=== PATIENT | male | born 1985 ===

== ENCOUNTER 2023-05-01 14:23 | Inpatient (IN) | payer OTHER ==
[~2023-05-01] VITALS: Ht 182.9 cm; Wt 71.9 kg
[2023-05-01] VITALS (12 sets, daily range): BP systolic 113–155; BP diastolic 58–89
[2023-05-01 14:48] LABS: BASOPHILS ABSOLUTE AUTO 0.06 K/mm3 (0.00-0.23); BASOPHILS PERCENT AUTO 0 % (0-2); EOSINOPHILS ABSOLUTE AUTO 0.01 K/mm3 (0.00-0.68); EOSINOPHILS PERCENT AUTO 0 % (0-6); Hemoglobin 14.3 g/dL (13.5-17.5); IMMATURE GRAN ABSOLUTE AUTO 0.12 K/mm3 (0.00-0.10); IMMATURE GRAN PERCENT AUTO 1 % (0-1); LYMPHOCYTES ABSOLUTE AUTO 4.17 K/mm3 (0.84-5.20); LYMPHOCYTES PERCENT AUTO 18 % (21-46); MONOCYTES PERCENT AUTO 7 % (4-13); Mean Corpuscular HGB 25.4 pg (26.0-34.0); Mean Corpuscular HGB Conc 32.5 g/dL (31.5-36.5); Mean Corpuscular Volume 78 fL (80-100); Mean Platelet Volume 9.4 fL (9.1-12.4); NEUTROPHILS ABSOLUTE AUTO 17.32 K/mm3 (1.96-9.15); NEUTROPHILS PERCENT AUTO 75 % (41-73); Platelet Count 349 K/mm3 (150-400); RDW Coefficient Variation 13.7 % (11.7-14.2); RDW Standard Deviation 38.7 fL (35.1-46.3); Red Blood Cell Count 5.62 M/mm3 (4.30-5.90); White Blood Cell Count 23.18 K/mm3 (4.00-11.30)
[2023-05-01 14:50] LABS: Calcium, Ionized (POC) 1.05 mmol/L (1.10-1.46); Chloride (POC) 102 mmol/L (98-108); Creatinine (POC) 1.5 mg/dL (0.8-1.3); Glucose (ISTAT POC) 268 mg/dL (70-99); Hemoglobin (POC) 15.3 g/dL (13.5-17.5); Potassium (POC) 3.1 mmol/L (3.5-5.5); Sodium (POC) 139 mmol/L (135-148); Total CO2 (POC) 18 mmol/L (21-32)
[2023-05-01 15:15] LABS: Salicylate <1.7 mg/dL (2.8-20.0)
[2023-05-01 15:17] LABS: PCO2 Arterial 34.9 mmHg (35-45); PO2 Arterial 102 mmHg (80-100); pH Blood Arterial 7.32 (7.35-7.45)
[2023-05-01 15:19] LABS: Alanine Aminotransfer (ALT/SGP 55 U/L (12-78); Albumin, Blood 4.2 g/dL (3.4-5.0); Albumin/Globulin Ratio 1.3 (0.8-1.8); Alk Phos 91 U/L (50-136); Anion Gap 17 mmol/L (6-16); Aspartate Aminotrans (AST/SGOT 55 U/L (12-37); Bilirubin, Total 0.5 mg/dL (0.1-1.0); Blood Urea Nitrogen 18 mg/dL (8-24); Bun/Creatinine Ratio 16.8 (12.0-20.0); CO2, Blood 18 mmol/L (21-32); Calcium, Blood 8.4 mg/dL (8.5-10.1); Chloride, Blood 103 mmol/L (98-108); Creatinine, Blood 1.07 mg/dL (0.60-1.20); Globulin, Blood 3.3 g/dL (2.2-4.0); Glomerular Filtration Rate 54 (60-); Glucose, Blood 272 mg/dL (70-99); Potassium, Blood 3.2 mmol/L (3.5-5.5); Sodium, Blood 138 mmol/L (136-145); Total Protein, Blood 7.5 g/dL (6.4-8.2)
[2023-05-01 15:22] LABS: Acetaminophen, Random <2.0 ug/mL (10.0-30.0)
[2023-05-01 15:41] LABS: U Amphetamine Screen DETECTED; U Barbituate Screen Not Detected; U Benzodiazapine Screen Not Detected; U Buprenorphine Screen Not Detected; U Cannabinoids Screen Not Detected; U Cocaine Screen Not Detected; U Methadone Screen Not Detected; U Methamphetamine Screen DETECTED; U Opiates Screen Not Detected; U Oxycodone Screen Not Detected; U Phencyclidine Screen Not Detected; U Propoxyphene Screen Not Detected
--- NOTE | 2023-05-01 17:05 | NUR ---
ARRIVAL TO ICU REPORT FROM ED INCLUDES PT WAS AT LOCAL [employer]. WAVED TO OTHER PEOPLE WHO WERE RIDING BICYCLES AND WHEN THEY RODE BY AGAIN PT WAS "UNRESPONSIVE AND PURPLE". PT BROUGHT FROM ED VIA GURNEY. VERSED GTT INFUSING AT 15MG/HR, GTT STOPPED UPON ARRIVAL AND PLACED IN LOCKBOX. PT HAS SOME TREMULOUS LIMB ACTIVITY THAT APPEARS TO BE "SHIVERING". PROPOFOL ORDERED FOR SEDATION. PUPILS 5MM, SLUGGISH TO RESPOND WITH OCCASIONAL NYSTAGMUS. CORNEAL REFLEX INTACT. COUGH/GAG INTACT. LIMBS MINIMALLY WITHDRAW FROM PAINFUL STIMULI. PT INTUBATED WITH VENT SETTINGS AC/VC 16/400/5/40%. TOLERATING VENT WELL. LUNGS CLEAR THROUGHOUT. NSR ON MONITOR WITH RATE 80S-90S. SBP 110S-130S. STRONG PULSES. OGT TO LIS WITH SMALL AMOUNT OF BROWN OUTPUT IN TUBING. ABODMEN SOFT, BOWEL TONES HYPOACTIVE. TEMP GEORGE PATENT AND DRAINING YELLOW URINE TO GRAVITY WITH 400ML OUTPUT. CORE TEMP 97.3. PT DIAPHORETIC/CLAMMY. DR CHILD AT BEDSIDE FOR EVAL. ORDERS RECEIVED. PT DID NOT HAVE WALLET OR ID WITH BELONGINGS. PT DID HAVE A CELL PHONE WITH CONTACTS. CONTACT IN PHONE OF NAME THAT IS TATTOOED ON PT AND REPORTS SHE IS HIS "EX". SHE PROVIDED PHONE NUMBER TO NEXT OF KIN (MOTHER) ALLEN. SISTER PATRICIA CALLED DEPARTMENT AFTER PHONE CALL TO EX. PATRICIA ABLE TO PROVIDE DESCRIPTION OF PT'S APPEARANCE AND TATTOOS. PATRICIA REPORTS HE WAS RELEASED FROM ASSISTED X2 DAYS AGO AND ASKED "IS IT BECAUSE OF DRUGS OR ALCOHOL?". REPORT GIVEN TO ODALIS BARRIGA.
[2023-05-01 18:02] LABS: Beta-hydroxybutyrate 2.6 mg/dL (0.2-2.8); Magnesium, Blood 2.4 mg/dL (1.6-2.4)
--- NOTE | 2023-05-01 18:40 | NUR ---
IDENTIFICATION: IN LOOKING THROUGH PT'S CELL PHONE, WAS ABLE TO OBTAIN TENTATIVE IDENTIFICATION AND CONTACT INFORMATION FOR FAMILY. CALL TO PATRICIA STANFORD, WHO WAS ABLE TO GIVE PHYSICAL DESCRIPTION MATCHING THE PT WELL IDENTIFY TATTOOS ON THE PT'S BODY. PATRICIA STATES THE PT'S NAME IS EMILY PALOMARES, SHE IS THE PT'S SISTER, AND THE PT'S MOTHER IS NAMED ALLEN PALOMARES - THEY BOTH LIVE IN [place] TOGETHER. PT'S IS 81. STATES PT HAS NO KNOWN MEDICAL HX OTHER THAN SUBSTANCE ABUSE, WAS JUST RELEASED FROM RETIREMENT "TWO DAYS AGO". PATRICIA STATES HER AND ALLEN WILL LIKELY COME SEE THE PT. PATRICIA STANFORD: [phone] ALLEN PALOMARES: [phone]
[2023-05-01 19:39] LABS: Hematocrit 44.5 % (37.0-53.0); Hemoglobin 14.7 g/dL (13.5-17.5)
[2023-05-01 19:48] LABS: Source, Urine Foley catheter
--- NOTE | 2023-05-01 20:00 | NUR ---
ASSUMED CARE OF PT AT 1900. REPORT RECEIVED AT BEDSIDE. DR CHILD WAS BEDSIDE. ORDERS RECEIVED. PT PRESENTS WITH PUPILS 5 MM WITH SLUGGISH RESPONSE. NYSTAGMUS NOTED. PT INTUBATED. AC 16, Tv 400, FIO2 40 PERCENT, PEEP 5. PT MAINTAINS SATURATIONS > 90 PERCENT. HAS OCCASSIONAL MOVEMENTS. WILL REVIEW CHART AND PLAN OF CARE FOR THIS PT.
[2023-05-01 20:02] LABS: Bilirubin, Urine Neg (Neg); Blood, Urine 4+ (Neg); Glucose Qualitative, Urine 3+ (Neg); Ketones, Urine 2+ (Neg); Leukocyte Esterase, Urine Neg (Neg); Nitrite, Urine Neg (Neg); Protein, Urine 2+ (Neg); Urobilinogen, Urine NORM (Normal)
[2023-05-01 20:03] LABS: International Normalized Ratio 1.02; Prothrombin Time Results 10.7 Sec (9.7-11.5)
[2023-05-01 20:10] LABS: Appearance, Urine Hazy (Clear); Color, Urine Yellow (P-Yellow)
[2023-05-01 20:11] LABS: Amorphous Mod (0-Heavy); Bacteria Few /hpf; Squamous Epithelial Cells Rare /hpf (Few); White Blood Cells, Urine 0-2 /hpf (0-5)
[2023-05-01 20:12] LABS: Spermatozoa Few /hpf
[2023-05-02] VITALS (74 sets, daily range): BP systolic 131–207; BP diastolic 63–103
[2023-05-02 04:23] LABS: PCO2 Arterial 39.7 mmHg (35-45); PO2 Arterial 142 mmHg (80-100); pH Blood Arterial 7.46 (7.35-7.45)
[2023-05-02 05:02] LABS: BASOPHILS ABSOLUTE AUTO 0.04 K/mm3 (0.00-0.23); BASOPHILS PERCENT AUTO 0 % (0-2); EOSINOPHILS PERCENT AUTO 0 % (0-6); Hematocrit 38.1 % (37.0-53.0); Hemoglobin 12.5 g/dL (13.5-17.5); IMMATURE GRAN ABSOLUTE AUTO 0.09 K/mm3 (0.00-0.10); IMMATURE GRAN PERCENT AUTO 0 % (0-1); LYMPHOCYTES PERCENT AUTO 8 % (21-46); MONOCYTES ABSOLUTE AUTO 1.24 K/mm3 (0.16-1.47); MONOCYTES PERCENT AUTO 6 % (4-13); Mean Corpuscular HGB 25.4 pg (26.0-34.0); Mean Corpuscular HGB Conc 32.8 g/dL (31.5-36.5); Mean Corpuscular Volume 77 fL (80-100); Mean Platelet Volume 9.4 fL (9.1-12.4); NEUTROPHILS ABSOLUTE AUTO 18.67 K/mm3 (1.96-9.15); NEUTROPHILS PERCENT AUTO 86 % (41-73); Platelet Count 264 K/mm3 (150-400); RDW Standard Deviation 38.9 fL (35.1-46.3); Red Blood Cell Count 4.93 M/mm3 (4.30-5.90); White Blood Cell Count 21.84 K/mm3 (4.00-11.30)
[2023-05-02 05:35] LABS: Albumin, Blood 3.4 g/dL (3.4-5.0); Albumin/Globulin Ratio 1.2 (0.8-1.8); Bun/Creatinine Ratio 21.5 (12.0-20.0); Calcium, Blood 8.2 mg/dL (8.5-10.1); Creatinine, Blood 0.75 mg/dL (0.60-1.20); Globulin, Blood 2.8 g/dL (2.2-4.0); Total Protein, Blood 6.2 g/dL (6.4-8.2)
--- NOTE | 2023-05-02 06:02 | NUR ---
PT HAS CONTINUED WITH LOW GRADE FEVER THIS NIGHT. DOES OPEN EYES TO TACTILE STIMULI BUT DOES NOT FOLLOW ANY DIRECTIONS. PT HAS HAD BERKOWITZ COLORED SECRETIONS FROM ETT. PT HAS SOME DIFFICULTIES TOLERATING VENT. HAVE INCREASED PROPOFOL TO 45 MCG'S/KG/MIN. HAVE MEDICATED PT ONCE WITH ATIVAN FOR INCREASED ANXIOUSNESS AND AGITATION. PT WILL COUGH WITH SUCTIONING. WILL CONTINUE TO MONITOR PT, AND WILL REPORT OFF TO ONCOMING RN.
--- NOTE | 2023-05-02 08:00 | NUR ---
INITIAL ASSESSMENT PATIENT INTUBATED AND SEDATED. PATIENT RESPONDING TO NOXIOUS STIMULI. PATIENT OPENS EYES OCCASIONALLY TO NOXIOUS STIMULI BUT IS NOT FOLLOWING ANY SIMPLE COMMANDS. PATIENT HAS CORE TEMP OF 99.7 DEGREES FAHRENHEIT. PATIENT MOVING ALL EXTREMITIES. PATIENT ON AC VC 18, TV 400, PEEP 5 AND 30% FIO2. MODERATE AMOUNT OF THICK, BERKOWITZ SECRETIONS BEING SUCTIONED FROM ETT. PATIENT IN ST, HR IN THE LOW 100S. SBP IN THE 150S. OG TO LIS. GEORGE DRAINING MARÍA/ GREEN COLORED URINE. ABRASION TO BILAT KNEES. SKIN FLUSHED. PROPOFOL AT 45 MCG/ KG/ MINUTE, LR AT 100 MLS/ HOUR. BED LOW, CALL LIGHT IN REACH. WILL CONTINUE TO MONITOR PATIENT FREQUENTLY THROUGHOUT SHIFT.
--- NOTE | 2023-05-02 11:15 | NUR ---
PATIENT'S MOTHER AND SISTER HERE TO SEE PATIENT. MOTHER AND SISTER CONFIRMED THAT THIS PATIENT IS EMILY PAIR.
--- NOTE | 2023-05-02 12:00 | NUR ---
PATIENT HAS CORE TEMP OF 100.2 DEGREES FAHRENHEIT. HR IN THE LOW 100S. SBP IN THE 160S. VENT SETTINGS ACVC 12, TV 470, PEEP 5 AND 25% FIO2. PATIENT ON PRECEDEX AND PROPOFOL.
[2023-05-02 12:02] LABS: CPK Creatine Kinase 690 U/L (39-308); Triglycerides 146 mg/dL (30-160)
--- NOTE | 2023-05-02 16:00 | NUR ---
PATIENT HAS TEMP OF 99.6 DEGREES FAHRENHEIT. HR 60S TO 70S. SBP 140S TO 150S. REMAINS ON PRECEDEX AND PROPOFOL.
--- NOTE | 2023-05-02 18:43 | NUR ---
SHIFT SUMMARY PATIENT REMAINED INTUBATED AND ON SEDATION. PROPOFOL PLACED ON SB THIS SHIFT; PATIENT BECAME TACHYCARDIC, HYPERTENSION, AGITATED AND WAS NOT FOLLOWING ANY COMMANDS. PATIENT PLACED BACK ON PROPOFOL AND PRECEDEX. PATIENT REMAINED RESPONDING TO NOXIOUS STIMULI. PATIENT HAD CORE TMAX OF 100.3 DEGREES FAHRENHEIT THIS SHIFT. PATIENT GIVEN PRN FENTANYL TWICE THIS SHIFT FOR SIGNS OF DISCOMFORT; PATIENT SEEMED MUCH MORE RELAXED AFTER GIVEN. PATIENT CHANGED FROM AC 18, 400, 5 AND 30% TO AC 12, 470, PEEP 5 AND 25% FIO2. PATIENT CONTINUED TO HAVE MODERATE AMOUNTS OF THICK, BERKOWITZ SECRETIONS FROM ETT. PATIENT SB TO ST, HR 50S TO 130S. PATIENT VINCENT WITH ADDITION OF PRECEDEX AND TACHY WHEN PROP ON SB. PATIENT HAS REMAINED NPO. OG TO LIS. 450 MLS OF DARK MARÍA/ GREEN URINE DRAINED FROM GEORGE. NO CHANGES TO SKIN NOTED. PATIENT REPOSITIONED THROUGHOUT SHIFT. LR INCREASED FROM 100 TO 150 MLS/ HOUR. BLOOD SUGARS 120S TO 130S. BED LOW, CALL LIGHT IN REACH. MOTHER AND SISTER HERE TO IDENTIFY PATIENT THIS SHIFT. REPORT WILL BE GIVEN TO ASSUMING METAL BUFFER NURSE SHORTLY.
--- NOTE | 2023-05-02 22:00 | NUR ---
ASSUMED CARE AT 1900 PT LAYING IN BED INTUBATED AND SEDATED AT SHIFT CHANGE. VENT SETTINGS AC/VC 12/470/5/25%; SMALL TO MODERATE AMOUNT OF THICK BERKOWITZ SECREATIONS FROM ETT. PT IS SEDATED WITH PROPOFOL INFUSING AT 35MCG/KG/MIN; SEE FLOWSHEET FOR TITRATIONS; HE IS REACTIVE TO PAINFUL STIMULI, GAG AND COUGH PRESENT; DOES NOT FOLLOW DIRECTIONS. AFEBRILE. HR 40 WHEN NOT STIMULATED AND 90'S DURING PERSONAL CARE; SBP 150-160'S. OG TO LIS. GEORGE IN PLACE AND DRAINING TO GRAVITY. LR INFUSING AT 150ML/HR. SEE SHIFT ASSESSMENT FOR FULL ASSESSMENT.
[2023-05-03] VITALS (69 sets, daily range): BP systolic 114–189; BP diastolic 64–113
[2023-05-03 03:32] LABS: BASOPHILS ABSOLUTE AUTO 0.09 K/mm3 (0.00-0.23); BASOPHILS PERCENT AUTO 1 % (0-2); EOSINOPHILS ABSOLUTE AUTO 0.24 K/mm3 (0.00-0.68); EOSINOPHILS PERCENT AUTO 2 % (0-6); Hematocrit 36.3 % (37.0-53.0); Hemoglobin 11.8 g/dL (13.5-17.5); IMMATURE GRAN ABSOLUTE AUTO 0.05 K/mm3 (0.00-0.10); IMMATURE GRAN PERCENT AUTO 0 % (0-1); LYMPHOCYTES ABSOLUTE AUTO 2.72 K/mm3 (0.84-5.20); LYMPHOCYTES PERCENT AUTO 19 % (21-46); MONOCYTES ABSOLUTE AUTO 1.24 K/mm3 (0.16-1.47); MONOCYTES PERCENT AUTO 9 % (4-13); Mean Corpuscular HGB 25.8 pg (26.0-34.0); Mean Corpuscular HGB Conc 32.5 g/dL (31.5-36.5); Mean Corpuscular Volume 79 fL (80-100); Mean Platelet Volume 9.9 fL (9.1-12.4); NEUTROPHILS ABSOLUTE AUTO 10.07 K/mm3 (1.96-9.15); NEUTROPHILS PERCENT AUTO 70 % (41-73); Platelet Count 211 K/mm3 (150-400); RDW Coefficient Variation 14.2 % (11.7-14.2); RDW Standard Deviation 40.8 fL (35.1-46.3); Red Blood Cell Count 4.58 M/mm3 (4.30-5.90); White Blood Cell Count 14.41 K/mm3 (4.00-11.30)
[2023-05-03 03:54] LABS: Albumin, Blood 2.8 g/dL (3.4-5.0); Bilirubin, Total 0.6 mg/dL (0.1-1.0); Bun/Creatinine Ratio 13.6 (12.0-20.0); Calcium, Blood 8.2 mg/dL (8.5-10.1); Creatinine, Blood 0.66 mg/dL (0.60-1.20); Globulin, Blood 2.9 g/dL (2.2-4.0); Potassium, Blood 3.6 mmol/L (3.5-5.5); Total Protein, Blood 5.7 g/dL (6.4-8.2)
--- NOTE | 2023-05-03 07:13 | NUR ---
END OF SHIFT SUMMARY NO ACUTE EVENTS OVER NIGHT. PT CONT TO BE INTUBATED WITH VENT SETTINGS AC/VC 12/470/5/25%; SMALL AMOUNT OF ETT SECREATIONS. CONT TO BE REACTIVE TO PAINFUL STIMULI AND WILL OPEN EYES TO LIGHT STIMULATION BUT HAS NOT FOLLOWED ANY DIRECTIONS; PRN ATIVAN GIVEN TWICE, ONCE FOR RESTLESSNESS AND ONCE FOR ALL BODY TREMORS; PROPOFOL INFUSING AT 25MCG/KG/MIN. HR 40-80'S. SBP 120-160'S. AFEBRILE. OG TO LIS. GEORGE IN PLACE WITH GREAT URINE OUTPUT. LR INFUSING AT 150ML/HR. REPORT GIVEN TO NITHYA ULLOA.
--- NOTE | 2023-05-03 14:14 | NUR ---
PT EXTUBATED AT 1405, O2 SATS 100% ON RA POST-EXTUBATION. PT TOLERATED WELL.
--- NOTE | 2023-05-03 19:47 | NUR ---
Shift Summary. Pt extubated today with good results. Able to maintain own airway, sats above 95%. Pt speech slow and sluggish w/dialated pupils. All sedation medication off this afternoon after pt extubated. Pt became more agitated prior to shift change, precedex restarted at 0.3 mcg/kg/hr. See assessment/chart for further details. Report given to nightshift RN.
--- NOTE | 2023-05-03 20:31 | NUR ---
PATIENT AWAKENS TO SLIGHT STIMULI, ASKING FOR WATER. VASHTI SIPS OF WATER WITHOUT DIFFICULTY. ORIENTED TO SELF ONLY. FOLLOWING DIRECTIONS BUT SLOW TO RESPOND. ABLE TO REMEMBER BEING IN HOSPITAL AND [place]OX 5 MIN AFTER REORIENTATION. EXTREMITIES SHAKY AND WITH POOR COORDINATION, ABLE TO REPOSITION SELF IN BED FOR COMFORT. PRECEDEX INFUSING TO HELP PATIENT REMAIN CALM. PATIENT REPEATING OVER AND OVER "I MUST HAVE HAD A REACTION TO SOMETHING I DRANK".
[2023-05-04] VITALS (29 sets, daily range): BP systolic 130–174; BP diastolic 66–96
[2023-05-04 03:38] LABS: Hemoglobin 12.3 g/dL (13.5-17.5); Mean Corpuscular HGB 25.5 pg (26.0-34.0); Mean Corpuscular HGB Conc 32.4 g/dL (31.5-36.5); Mean Corpuscular Volume 79 fL (80-100); Mean Platelet Volume 9.9 fL (9.1-12.4); Platelet Count 231 K/mm3 (150-400); RDW Coefficient Variation 13.9 % (11.7-14.2); RDW Standard Deviation 39.7 fL (35.1-46.3); Red Blood Cell Count 4.82 M/mm3 (4.30-5.90); White Blood Cell Count 13.38 K/mm3 (4.00-11.30)
[2023-05-04 04:00] LABS: Bun/Creatinine Ratio 11.2 (12.0-20.0); Calcium, Blood 8.4 mg/dL (8.5-10.1); Creatinine, Blood 0.72 mg/dL (0.60-1.20); Potassium, Blood 3.5 mmol/L (3.5-5.5)
--- NOTE | 2023-05-04 06:00 | NUR ---
SUMMARY PATIENT SLEEPING OFF AND ON T/O NIGHT, WHEN AWAKE YELLS OUT FOR WATER, WHEN REMINDED TO USE CALL LIGHT AND REORIENT PATIENT STATES "SORRY" VASHTI PO WATER WITHOUT DIFFICULTY. PRECEDEX 0.2 MCG INFUSING TO HELP PATIENT REMAIN CALM. PATIENT REPOSITIONING SELF IN BED FOR COMFORT. NIGHT PROGRESSED APPEARS TO BE GETTING STRONGER AND HAVE BETTER COORDINATION. NO IGNITION SOURCE SEEN IN ROOM.
--- NOTE | 2023-05-04 08:30 | NUR ---
INITIAL ASSESSMENT PATIENT ALERT AND ORIENTED TO SELF AND FAMILY. PATIENT CONFUSED ON WHERE HE IS AND WHY; CONTINUES TO ASK QUESTIONS. PATIENT FORGETFUL. PRECEDEX PLACED ON SB FROM 0.2 MCG/ KG/ HOUR. PATIENT CALM AND COOPERATIVE AT THIS TIME. PATIENT AFEBRILE. PATIENT HAS NO COMPLAINTS OF PAIN AT THIS TIME. PATIENT WEAK BUT ABLE TO MOVE ALL EXTREMITIES. POOR COORDINATION NOTED. PATIENT SATTING 90% AND GREATER ON RA. PATIENT IN SR, HR IN THE 60S. SBP 140S TO 160S. PATIENT TOLERATING SIPS OF WATER. NO DIET AT THIS TIME. GEORGE DRAINING YELLOW COLORED URINE. SCATTERED SCABS AND BRUISES NOTED. NS TKO. BED LOW, CALL LIGHT IN REACH. WILL CONTINUE TO MONITOR PATIENT FREQUENTLY THROUGHOUT SHIFT.
--- NOTE | 2023-05-04 12:15 | NUR ---
PATIENT AFEBRILE. HR 70S TO 80S. SBP IN THE 160S. PATIENT REMAINS SATTING 90% AND GREATER ON RA. PATIENT REMAINS ORIENTED TO SELF AND FAMILY. PATIENT CONTINUES TO ASK WHERE HE IS AND WHAT HAPPENED. PATIENT STATES THAT STAFF AND FAMILY ALL LOOK LIKE ALIENS. PATIENT DEPTH PERCEPTION SKEWED. PATIENT TOLERATING SOFT DIET WELL. ARIEL MERCEDES'Naima IN MORNING. NO OTHER ACUTE CHANGES TO NOTE ON AT THIS TIME. NO COMPLAINTS OF PAIN OR DISCOMFORT. WILL CONTINUE TO MONITOR.
--- NOTE | 2023-05-04 13:20 | NUR ---
DR. PEÑA INFORMED THAT PATIENT IS SAYING HE IS HAVING PROBLEMS SEEING. INFORMED THAT PATIENT NOT REALLY LOOKING AT NURSE BUT MORE PAST NURSE. NO ORDERS OBTAINED AT THIS TIME.
--- NOTE | 2023-05-04 14:15 | NUR ---
SHIFT SUMMARY PATIENT REMAINED ALERT AND ORIENTED TO SELF ONLY. PATIENT CONTINUED TO ASK WHERE HE WAS AND WHAT HAPPENED. PATIENT FORGETFUL AND WOULD ASK SAME QUESTIONS ONLY MINUTE AFTER ASKING BEFORE. PATIENT REMAINED PLEASANT AND COOPERATIVE. PATIENT CONTINUED TO GIGGLE AND SAY THAT EVERYONE "LOOKED LIKE ALIENS". PATIENT REMAINED WITH POOR COORDINATION. PATIENT HAD DIFFICULTY SEEING AND WITH PERIPHERAL VISION. PATIENT REMAINED AFEBRILE. PATIENT DID NOT HAVE ANY COMPLAINTS OF PAIN. PATIENT REMAINED SATTING 90% AND GREATER ON RA. PATIENT REMAINED SR TO ST, HR 60S TO LOW 100S. SBP 140S TO 170S. NO BM THIS SHIFT. PATIENT ADVANCED TO SOFT FINGERFOOD DIET THIS SHIFT. PATIENT TOLERATED WELL BUT NEEDED ASSISTANCE TO GET FOOD TO HIS MOUTH BECAUSE OF POOR COORDINATION AND DIFFICULTY WITH VISION. ARIEL DC'D THIS SHIFT. PATIENT VOIDED AFTER REMOVED. TOTAL OF 750 MLS OF URINE OUT THIS SHIFT. NO CHANGES TO SKIN NOTED. THIAMINE ORDERED AND GIVEN THIS SHIFT. FAMILY IN TO VISIT THIS SHIFT. PATIENT SUCCESSFULLY TRANSFERRED TO MEDICAL FLOOR, ROOM 337. ALL BELONGINGS SENT WITH PATIENT.
--- NOTE | 2023-05-04 14:15 | NUR ---
PT ARRIVED TO MED UNIT FROM ICU AT THIS TIME
--- NOTE | 2023-05-04 14:30 | NUR ---
HERB FROM PT OKED 2X STAND PIVOT TO BSC.
--- NOTE | 2023-05-04 18:18 | NUR ---
SHIFT SUMMARY PT A&OX2, PLEASENTLY CONFUSED-REQUIRES FREQUENT REORIENTATION. PT ASKING "WHAT HAPPENED, WHERE AM I, HOW DID I GET TO [place], HOW DID YOU KNOW WHO I AM, HOW DO YOU KNOW MY FAMILY?" PT C/O "NOT BEING ABLE TO SEE"- THIS WAS REPORTED TO THIS RN FROM ICU NURSE WHO NOTIFIED DRBrigitte- LIKELY DUE TO MEDS PLAN TO MRI IN 24-48 HOURS IF NOT RESOLVED. CALL LIGHT W/IN REACH. TOLERATING SOFT FINGER FOOD DIET WELL AT THIS TIME. RA. HTN NOTED.
--- NOTE | 2023-05-05 04:54 | NUR ---
SHIFT SUMMARY A/O X 2 PLEASENT YET CONFUSED C/O NOT HAVING CLEAR VISION AND SEEING ALIENS. NO PAIN NO DISTRESS, PT CALLS OUT AND HAS A HARD TIME USING CALL LIGHT AFTER MANY EXPLAINATIONS. SWALLOW IS INTACT AND SNACKS WERE GIVEN, NOW TRYING TO SLEEP. WILL CONT TO MONITOR.
[2023-05-05 08:11] VITALS: BP 134/85
[2023-05-05 14:59] VITALS: BP 132/71
--- NOTE | 2023-05-05 20:31 | NUR ---
SHIFT SUMMARY- PT HAS HAD NO ACUTE CHANGE T/O THE SHIFT. HE CONTINUES TO CALL OUT FOR ASSISTANCE, HE DID SET OFF THE BED ALARMS THREE TIMES TOWARD THE END OF THE DAY. BEDSIDE REPORT COMPLETED WITH NIGHT RN, THE PT IS SLEEPING SOUNDLY NO S&S OF DISTRESS NOTED.
[2023-05-06] VITALS (10 sets, daily range): BP systolic 118–177; BP diastolic 64–113
--- NOTE | 2023-05-06 05:35 | NUR ---
PT IS A&O3 FORGETFUL AT TIMES SOME CONFUSION, NO VISUAL HALLUCINATIONS THIS SHIFT, PT STATES EYE SIGHT IS STILL THE SAME, RA, 2 PERSON TO STAND WITH WALKER, USING URINAL, NO COMPLAINTS OF PAIN THIS SHIFT, FIRE SAFETY EDUCATION PROVIDED, CONTINUE POC
--- NOTE | 2023-05-06 16:24 | NUR ---
PT TRANSFERRED TO SCU RM 345. REPORT RECEIVED FROM SUGAR BARRIGA. PT TRANSPORTED VIA HIS HOSPITAL BED. BEDSIDE REPORT DONE. PT ORIENTED TO ROOM, CALL LIGHT, FALL PRECAUTIONS. BED IN LOW POSITION, PT BED ALARM SET. PT DENIES NEEDS AT THIS TIME.
--- NOTE | 2023-05-06 16:40 | NUR ---
TRANSFER NOTE- PT TRAANSFERED TO SCU D/T CONFUSION AND WEAKNESS COMBO MAKING HIM A HIGH FALL RISK. PT ALERT AND ORIENTED TO SELF AND FAMILY, HE HAS A VERY HARD TIME MOVING HIS HANDS AND OFTEN SPILLS HIS FOOD AND DRINK. TODAY HE REQUIRED PROMPTING TO EAT HIS FOOD, STAFF ASSISTED HIM BY PLACING THE FOOD IN HIS HAND. PASSED ALL ON IN REPORT TO NITHYA CORRALES. NO S&S OF DISTRESS NOTED AT THE TIME OF TRANSFER.
--- NOTE | 2023-05-06 18:24 | NUR ---
PT IS A/O X 2-3, PT HAS SLURRED SPEECH. 2 ASSIST WITH GB/WALKER. PT HAS BEEN PLEASANT AND COOPERATIVE SINCE ARRIVAL. NO EPISODES OF IMPULSIVITY. PT DID NOT WANT TO EAT DINNER. MULTIPLE ATTEMPTS TO GET PT TO EAT OFFERED. PT TALKS ABOUT HIS SON AND PARENTS WITH INTERACTION.
--- NOTE | 2023-05-06 23:51 | NUR ---
TRANSFER NOTE/PATIENT UPDATE REPORT TAKEN FROM GUS BARRIGA VIA PHONE. PT TRANSFERRED TO PCU 3 AT 2315. BEDSIDE REPORT DONE FROM GUS BARRIGA. PATIENT REPORTED TO HAVE COMPLETED CT PRIOR TO TRANSFER TO PCU. PATIENT NONVERBAL AT THIS TIME. RIGHT SIDED GAZE NOTED. PUPILS APPEAR DILATED AT 7MM, WITH PRISK PUPILLARY RESPONSE TO LIGHT. PT NOT FOLLOWING DIRECTIONS AT THIS TIME. PT LIFTING HEAD WITH STIMULI AND NOTED TO HAVE NYSTAGMUS IN BILATERAL EYES AND FINE TWITCHING/SHAKING THROUGHOUT. WHEN PT IS CALM AND RESTING NO MOVEMENTS NOTED. PPP. OTHER VITALS STABLE AT THIS TIME. SUCTION SET UP AT BEDSIDE. 1 ON 1 SITTER WITH PT IN ROOM. SEIZURE PADS IN PLACE ON RAILS. BED IN LOWEST POSITION AND CALL LIGHT WITHIN REACH.
--- NOTE | 2023-05-06 23:52 | NUR ---
SHIFT SUMMARY PATIENT APPEARES MOSTLY ALERT TO SELF, CONFUSED. IN NO ACUTE DISTRESS AT TIME OF ASSESSMENT, 20:00. AT 21:15 BED ALARM WENT OFF, PATIENT WAS FOUND LAYIMG ON LEFT SIDE NEXT TO BED. PATIENT ASSESSED IN PLACE FOR INJURIES, NONE APPARENT. PATIENT WOULD ONLY RESPOND NO TO QUESTIONS OF IF HE HIT HIS HEAD, OR IF IN PAIN. THIS RN AND OTHER RN ASSISTED PATIENT TO HIS FEET AND BACK INTO BED. PATIENT AGAIN ASSESSED FOR PAIN, PATIENT CONTINUES TO STATE NO, STATED, "NO, I WAS JUST TRYING TO MOVE." NOTIFIED, RECEIVED T/O FOR 1:1 SITTER. AT 22:15 THIS RN WAS ALERTED BY 1:1 STAFF THAT PATIENT APPEARES TO BE HAVING A SEIZURE. CODE RAPID CALLED. SEE CURRICULUM COUNSELOR NOTE. PATIENT TRANSFERED TO PCU AFTER CT WAS DONE. REPORTED TO PCU NURSE AND PATIENT TRANSFERED OFF UNIT AT 22:55.
[2023-05-07] VITALS (43 sets, daily range): BP systolic 87–163; BP diastolic 56–92
--- NOTE | 2023-05-07 00:48 | NUR ---
PATIENT UPDATE THIS RN CALLED TO ROOM BY JULITA FOR REPORTED SEIZURE LIKE ACTIVITY AT 0020. PT NOTED TO HAVE FINE SHAKING THROUGHOUT. SPASTICITY IN ALL EXTREMETIES, CLENCHED FISTS. NOT FOLLOWING COMMANDS. LEFT GAZE OF PUPILS. MOANING OCCASIONALLY. AIRWAY SUCTIONED OF SECRETIONS. MD GAY TO BEDSIDE. CALL PLACED TO MD SAMS BY EXCELLENCE CONSULTANTNITHYA COYLE FOR ORDER FOR 2MG ATIVAN; PULLED ON OVERRIDE AND GIVEN. ATIVAN GIVEN AT 0035. MOVEMENT SLOWED OVER THE NEXT 10 MINUTES. PT RELAXED AT 0045. NEW ORDERS FOR KEPPRA AND ATIVAN PER . LAB DRAWING STAT LABS CURRENTLY.
[2023-05-07 00:51] LABS: Base Excess Venous 0 mmol/L; Bicarbonate Venous 24.4 mmol/L (24.0-30.0); PCO2 Venous 38.5 mmHg (38-42); pH Blood Venous 7.41 (7.34-7.37)
[2023-05-07 01:16] LABS: BASOPHILS ABSOLUTE AUTO 0.07 K/mm3 (0.00-0.23); BASOPHILS PERCENT AUTO 1 % (0-2); EOSINOPHILS PERCENT AUTO 1 % (0-6); Hematocrit 44.5 % (37.0-53.0); Hemoglobin 14.6 g/dL (13.5-17.5); IMMATURE GRAN ABSOLUTE AUTO 0.04 K/mm3 (0.00-0.10); IMMATURE GRAN PERCENT AUTO 0 % (0-1); LYMPHOCYTES PERCENT AUTO 16 % (21-46); MONOCYTES ABSOLUTE AUTO 1.05 K/mm3 (0.16-1.47); MONOCYTES PERCENT AUTO 8 % (4-13); Mean Corpuscular HGB 25.5 pg (26.0-34.0); Mean Corpuscular HGB Conc 32.8 g/dL (31.5-36.5); Mean Corpuscular Volume 78 fL (80-100); Mean Platelet Volume 9.5 fL (9.1-12.4); NEUTROPHILS PERCENT AUTO 75 % (41-73); Platelet Count 316 K/mm3 (150-400); RDW Standard Deviation 38.8 fL (35.1-46.3); Red Blood Cell Count 5.72 M/mm3 (4.30-5.90); White Blood Cell Count 13.56 K/mm3 (4.00-11.30)
[2023-05-07 02:45] LABS: Thyroid Stimulating Hormone 1.58 uIU/mL (0.360-4.800)
[2023-05-07 02:52] LABS: Albumin, Blood 3.5 g/dL (3.4-5.0); Albumin/Globulin Ratio 0.9 (0.8-1.8); Bilirubin, Total 0.5 mg/dL (0.1-1.0); Bun/Creatinine Ratio 20.1 (12.0-20.0); Calcium, Blood 9.1 mg/dL (8.5-10.1); Creatinine, Blood 0.65 mg/dL (0.60-1.20); Potassium, Blood 3.3 mmol/L (3.5-5.5); Total Protein, Blood 7.5 g/dL (6.4-8.2)
--- NOTE | 2023-05-07 05:18 | NUR ---
SHIFT SUMMARY SEE PREVIOUS NOTES ABOUT UPDATES AND SEIZURE-LIKE ACTIVITY. PT NOTED TO HAVE "SHAKING/TREMORS" WITH STIMULATION FROM CARE. CT HEAD/SPINE COMPLETE. VITALS REMAIN STABLE. PT WITH INCREASED SECRETIONS; SUCTIONING NEEDED AND PLACING PT ON SIDE. SITTER REMAINS AT BEDSIDE MONITORING FOR INCREASED SECRETIONS AND SEIZURE-LIKE ACTIVITY. NO FURTHER ATIVAN GIVEN; SEE EMAR. PT CONTINUES TO MOAN OCCASIONALLY WITH FORMED WORDS. NO FURTHER CHANGES TO NEURO FROM PREVIOUS ASSESSMENTS/NOTES. PT NOTED TO BE INCONTINENT. Q2 REPOSITIONING DONE. ATTENDS IN PLACE. IGNITION RISK/SAFETY ASSESSMENT AND EDUCATION COMPLETE. SEIZURE PADS IN PLACE. BED IN LOWEST POSITION AND CALL LIGHT WITHIN REACH. THIS RN WILL CONTINUE TO MONITOR UNTIL SHIFT CHANGE AT 0700.
--- NOTE | 2023-05-07 06:55 | NUR ---
POSION CONTROL AFTER REVIEW OF MRI REPORT WITH "PATTERN CONSISTENT WITH METHANOL TOXICITY", SPOKE WITH DR. SAMS ABOUT PT'S SYMPTOMS THIS SHIFT THAT APPEAR TO BE CONSISTENT WITH THIS POSSIBLE FINDING. PER CONVERSATION, PLACED CALL TO POISON CONTROL AND REQUESTED REVIEW. SPOKE WITH IZABELLA AND WAS GIVEN AN ESTIMATE OF 10 MINS FOR A RETURN CALL. DID NOT RECEIVE RETURN CALL SO I CALLED AGAIN AND WAS ADVISED THAT IT WOULD TAKE LONGER FOR THE REGIONAL FACILITIES MANAGER TO REVIEW AND RESPOND. PROVIDED ONCOMING CHARGE NURSE'S NAME FOR FOLLOW UP AND UPDATED THE PRIMARY RN JULIOCESAR.
[2023-05-07 08:53] LABS: BASOPHILS ABSOLUTE AUTO 0.04 K/mm3 (0.00-0.23); BASOPHILS PERCENT AUTO 0 % (0-2); EOSINOPHILS PERCENT AUTO 0 % (0-6); Hematocrit 43.1 % (37.0-53.0); Hemoglobin 14.2 g/dL (13.5-17.5); IMMATURE GRAN ABSOLUTE AUTO 0.08 K/mm3 (0.00-0.10); IMMATURE GRAN PERCENT AUTO 0 % (0-1); LYMPHOCYTES PERCENT AUTO 9 % (21-46); MONOCYTES ABSOLUTE AUTO 1.02 K/mm3 (0.16-1.47); MONOCYTES PERCENT AUTO 6 % (4-13); Mean Corpuscular HGB 25.8 pg (26.0-34.0); Mean Corpuscular HGB Conc 32.9 g/dL (31.5-36.5); Mean Corpuscular Volume 78 fL (80-100); Mean Platelet Volume 9.1 fL (9.1-12.4); NEUTROPHILS ABSOLUTE AUTO 15.71 K/mm3 (1.96-9.15); NEUTROPHILS PERCENT AUTO 85 % (41-73); Platelet Count 335 K/mm3 (150-400); RDW Standard Deviation 39.8 fL (35.1-46.3); White Blood Cell Count 18.55 K/mm3 (4.00-11.30)
--- NOTE | 2023-05-07 08:55 | NUR ---
care assumption/transfer to icu this rn assumed care at 0700. tele sr. patient responds to stimuli. patient pupils are sluggish and at 5mm. patient noted to be shaking/twitching at shift change. patient is nonverbal. patient will moan and groan at times. patient has a gag reflex. tele called this rn at 0740 to inform of increase rate into the 120s-130s. this rn into room and patient having and episode of siezure like activity. discharge planner, miquel, got ativan and patient received 1mg of ativan. heart rate decreased back into the 80-90s and patient stopping having seizure like activity and was resting. md rodríguez on unit and discussing plan of care with discharge planner. at 0834 this rn received a call from tele, while also the sitter in the room called my name. this rn in room and patient was having a seizure. family at bedside. md rodríguez informed and in room to witness siezure, and clinical coordinator in room, julia antonio. discharge planner in room. md rodríguez ordered 2mg of ativan. ativan given. no change in seizure activty. rapid response called. rapid response team in room. md rodríguez ordered 2mg of ativan, ativen given. vitals cycled. md rodríguez order kepra. md rodríguez in hallway updating family. no change in seizure activity. md rodríguez orderd 2mg of ativan, and to transfer patient to icu to be intubated and medicated. kepra started. patient transfered to icu via pcu bed.
--- NOTE | 2023-05-07 09:00 | NUR ---
care assumption/transfer to icu this rn assumed care at 0700. tele sr. patient responds to stimuli. patient pupils are sluggish and at 5mm. patient noted to be shaking/twitching at shift change. patient is nonverbal. patient will moan and groan at times. patient has a gag reflex. tele called this rn at 0740 to inform of increase rate into the 120s-130s. this rn into room and patient having and episode of siezure like activity. rn placement, miquel, got ativan and patient received 1mg of ativan. heart rate decreased back into the 80-90s and patient stopping having siezure like activity and was resting. md rodríguez on unit and discussing plan of care with rn placement. at 0834 this rn received a call from tele, while also the sitter in the room called my name. this rn in room and patient was having a seizure. family at bedside. md rodríguez informed and in room to witness siezure, and clinical coordinator in room, bailee antonio. rn placement in room. md rodríguez ordered 2mg of ativan. ativan given. no change in seizure activty. rapid response called. rapid response team in room. md rodríguez ordered 2mg of ativan, ativen given. vitals cycled. md rodríguez order kepra. md rodríguez in hallway updating family. no change in siezure activity. md rodríguez orderd 2mg of ativan, and to transfer patient to icu to be intubated and medicated. kepra started. patient transfered to icu via pcu bed.
--- NOTE | 2023-05-07 09:03 | NUR ---
TRANSFER TO ICU/INTUBATION BLOCK NOTE TO ICU 10, @ 0850 DR WHALEN IN ROOM. 0855 ETOMIDATE 20MG IVP ADMINISTERED. 0856 INTUBATED WITH 8.0 AND 25 IGOR THE TEETH CONFIRMED WITH POSITIVE COLOR CHANGE ON ETCO2 PENDING CXR. 0858 PROPOFOL TO 40MCG/KG/MIN 0903 2MG ATIVAN IVP ADMINISTERED AND PROPOFOL AT 60MCG/KG/MIN PC REPORTS FAMILY IN THE WAITING AREA.
[2023-05-07 09:13] LABS: Bun/Creatinine Ratio 24.1 (12.0-20.0); Calcium, Blood 8.6 mg/dL (8.5-10.1); Creatinine, Blood 0.62 mg/dL (0.60-1.20); Potassium, Blood 4.3 mmol/L (3.5-5.5); Prolactin 9.9 ng/mL (2.5-17.4)
--- NOTE | 2023-05-07 09:27 | NUR ---
ASSUMED CARE ASSUMED CARE AT 0910. PT WITH CONTINUAL SEIZURES PT PREPPED FOR INTUBATION. SEE PREVIOUS NOTES FOR INTUBATION INFO. VENT SETTINGS AC 16, TV 500, PEEP 5, FIO2 50%. OGT PLACED. GEORGE PLACED, UA SENT. PT SEDATED WITH PROPOFOL AT THIS TIME. SEIZURE ACTIVITY SUBSIDED AT THIS TIME. PT FAMILY AT BEDSIDE, UPDATED BY DR WHALEN ABOUT PT CONDITION AND PLAN OF CARE. VITAL SIGNS STABLE. WILL CONTINUE TO MONITOR.
[2023-05-07 09:30] LABS: Source, Urine Foley catheter
[2023-05-07 09:33] LABS: Appearance, Urine Clear (Clear); Bilirubin, Urine Neg (Neg); Blood, Urine 2+ (Neg); Color, Urine Yellow (P-Yellow); Glucose Qualitative, Urine 2+ (Neg); Ketones, Urine 4+ (Neg); Leukocyte Esterase, Urine Neg (Neg); Nitrite, Urine Neg (Neg); Protein, Urine 1+ (Neg); Specific Gravity, Urine 1.025 (1.003-1.022); Urobilinogen, Urine NORM (Normal)
--- NOTE | 2023-05-07 09:41 | NUR ---
Arrived to Pt's room with rapid response team providing care. Pt's mother Fide and Pt's SO Toffia out in [place]. Offered emotional support and therapeutic listening. Answered questions and validated concerns. Excel Expert Kory also present. Continued supportive visit and provided updates to family as team provides care. Pt transfered to ICU 10. Palliative Care will remain available
[2023-05-07 09:45] LABS: Base Excess Venous 1.2 mmol/L; Bicarbonate Venous 25.7 mmol/L (24.0-30.0); PCO2 Venous 33.5 mmHg (38-42); pH Blood Venous 7.48 (7.34-7.37)
[2023-05-07 10:05] LABS: Squamous Epithelial Cells Not Seen /hpf (Few); White Blood Cells, Urine 0-2 /hpf (0-5)
[2023-05-07 10:06] LABS: Bacteria Few /hpf; Mucus Heavy (0-Heavy)
[2023-05-07 10:07] LABS: Renal Epithelial Rare /hpf (0-Rare)
--- NOTE | 2023-05-07 10:12 | NUR ---
Spiritual care visit conducted. In responding to a rapid response page, I check in on family that are present. Patient's mother, Fide, and SO, Ghada, are in the hallway just outside the patient's PCU rm and Palliative RN Enrico is providing a calming presnce and soothing conversation. I become part of the team that surrounds them as the events ufold and patient ultimately ends up in ICU-10 and intubated. Fide and Ghada are tearful at times and struggle to understand all the movement surrounding the patient. The medical take extra time to communicate with and calm the family. I provided therapeutic listening, patient life review, gentle business and financial counsel and prayer. Family responded well and felt at peace with leaving for a while because the patient is sedated and minimally responsive.
--- NOTE | 2023-05-07 14:51 | NUR ---
Spoke with pt's mom by phone today after he was intubated. She was present when he began to seize, and was quickly ushered out of the room while pt was sedated then intubated to stop the seizures and protect his airway. Mom Fide was tearful on the phone, states she doesn't feel like she can go to work this afternoon, after witnessing the pt with new onset of seizure today. I reminded her she must take care of herself first, or she won't be able to care for others. She agrees, and states she will be back in to see pt tomorrow. She asked if he remains on the ventilator for now, to which I said yes. Palliative care will remain available, and continue therapeutic visits with pt's mom.
--- NOTE | 2023-05-07 17:54 | NUR ---
SHIFT SUMMARY NO ACUTE CHANGES SINCE ASSUMPTION OF CARE. PT REMAINS INTUBATED AND SEDATED. VENT SETTINGS REMAIN AC 13, TV 500, PEEP 5, FIO2 40%. PT WITH MINIMAL ETT SECRETIONS THIS SHIFT. PROPOFOL INFUSING AT 50 MCG/KG/HR AND NS AT 75 ML/HR. PT WITHDRAWS TO NOXIOUS STIMULI. NO SEIZURE ACTIVITY NOTED THROUGHOUT THIS AFTERNOON S/P INTUBATION AND ADEQUATE SEDATION. OGT IN PLACE, CLAMMPED. PLANS TO START TF TOMORROW AM PER DIETARY ORDERS. GEORGE IN PLACE WITH SMALL AMOUNT OF CLOUDY YELLOW OUTPUT NOTED. SBW RESTRAINTS REMAIN IN PLACE. NO IGNITION SOURCES IDENTIFIED. FIRE RISK EDUCATION DEFERRED DUE TO INTUBATION/SEDATION. NO FAMILY AT BEDSIDE. VITAL SIGNS STABLE. WILL CONTINUE TO MONITOR AND REPORT OFF TO ONCOMING RN.
--- NOTE | 2023-05-07 20:39 | NUR ---
ASSUMPTION OF CARE/ASSESSMENT: ASSUMED CARE OF PT AT 1900; REPORT RECIEVED FROM JORGE BARRIGA. PT IN BED AND SEDATED WITH PROPOFOL GTT @ 50 MCG AND VENT SETTINGS AC/VC 13/500/5/25%. PT REMAINS UNRESPONSIVE TO PAIN STIMULI BUT TWITCHES WHEN PERFORMING PT CARE. PT SR ON MONITOR WITH HR 70'S, SBP 120'S AND CONTINUOUS TILE MECHANIC HELPER IN PLACE. PT HAS COARSE LUNG SOUNDS THROUGHOUT WITH DIM BASES; SPO2 97<. PT TOLERATING VENT WELL. PT HAS OGT IN PLACE THAT IS CLAMPED AT THIS TIME; PLANS FOR TUBE FEEDING TO BE STARTED IN THE AM. HYPOACTIVE BOWEL SOUNDS IN ALL QUADRANTS; ABD SOFT AND NON-TENDER. PT HAS GEORGE IN PLACE THAT IS DRAINING TO GRAVITY; URINE IS YELLOW WITH SEDIMENTS NOTED. PPP X 4, SKIN COOL BUT FEBRILE WITH TEMP AT 100.5. FAN AND ICE PACKS APPLIED. PT HAS SCATTERED SCABS AND BRUISING NOTED. BED LOWERED, CALL LIGHT IN REACH, WILL CONTINUE TO MONITOR.
[2023-05-08] VITALS (45 sets, daily range): BP systolic 114–160; BP diastolic 65–88
[2023-05-08 03:40] LABS: BASOPHILS ABSOLUTE AUTO 0.04 K/mm3 (0.00-0.23); BASOPHILS PERCENT AUTO 0 % (0-2); EOSINOPHILS ABSOLUTE AUTO 0.08 K/mm3 (0.00-0.68); EOSINOPHILS PERCENT AUTO 1 % (0-6); Hematocrit 38.1 % (37.0-53.0); Hemoglobin 12.3 g/dL (13.5-17.5); IMMATURE GRAN ABSOLUTE AUTO 0.07 K/mm3 (0.00-0.10); IMMATURE GRAN PERCENT AUTO 1 % (0-1); LYMPHOCYTES ABSOLUTE AUTO 2.28 K/mm3 (0.84-5.20); LYMPHOCYTES PERCENT AUTO 17 % (21-46); MONOCYTES ABSOLUTE AUTO 1.48 K/mm3 (0.16-1.47); MONOCYTES PERCENT AUTO 11 % (4-13); Mean Corpuscular HGB 25.6 pg (26.0-34.0); Mean Corpuscular HGB Conc 32.3 g/dL (31.5-36.5); Mean Corpuscular Volume 79 fL (80-100); Mean Platelet Volume 9.5 fL (9.1-12.4); NEUTROPHILS ABSOLUTE AUTO 9.49 K/mm3 (1.96-9.15); NEUTROPHILS PERCENT AUTO 71 % (41-73); Platelet Count 254 K/mm3 (150-400); RDW Coefficient Variation 14.5 % (11.7-14.2); RDW Standard Deviation 41.6 fL (35.1-46.3); White Blood Cell Count 13.44 K/mm3 (4.00-11.30)
[2023-05-08 03:56] LABS: Bun/Creatinine Ratio 19.2 (12.0-20.0); Calcium, Blood 7.6 mg/dL (8.5-10.1); Creatinine, Blood 0.78 mg/dL (0.60-1.20); Magnesium, Blood 2.1 mg/dL (1.6-2.4); Phosphorus, Blood 2.9 mg/dL (2.5-4.9); Potassium, Blood 3.6 mmol/L (3.5-5.5)
--- NOTE | 2023-05-08 06:36 | NUR ---
SHIFT SUMMARY: PT REMAINS INTUBATED AND SEDATED WITH VENT SETTINGS AC/VC 13/500/5/25%. PROPOFOL GTT @ 50 MCG AND NS @ 75 MLS/HR. COMPLETE BED BATH AND LINEN CHANGE COMPELTED THIS SHIFT. 400 URINE OUTPUT THIS SHIFT. PT NEURO STATUS REMAINS THE SAME PREVIOUS NOTES. NO SEIZURE ACTIVITY THIS SHIFT. HOURLY ROUNDING FOR IGNITION SOURCES AND FIRE RISK COMPLETED. BED LOWERED, CALL LIGHT IN REACH, WILL CONTINUE TO MONITOR UNTIL ONCOMING RN ARRIVES.
--- NOTE | 2023-05-08 17:18 | NUR ---
SHIFT SUMMARY PT REMAINS INTUBATED AND SEDATED. VENT SETTINGS REMAIN AC 13, TV 500, PEEP 5, FIO2 21%. SEDATION TITRATED DOWN THROUGHOUT THE MORNING. PT STARTED WITH SEIZURE ACTIVITY THIS AFTERNOON. DR WHALEN AT BEDSIDE TO ASSESS PT. PROPOFOL INCREASED BACK TO 50 MCG/KG/MIN. OGT IN PLACE WITH TF INFUSING AT GOAL RATE. GEORGE TEMP PROBE IN PLACE WITH DARK GREEN OUTPUT NOTED. PT FEBRILE THROUGHOUT THE DAY. PT WITH FAN IN PLACE AND MED WITH TYLENOL PER EMAR. VITAL SIGNS STABLE. COUGH AND GAG REMAIN PRESENT WITH SUCTION. PT WITH COPIOUS ORAL SECRETIONS, AND MODERATE AMOUNT OF ETT SECRETIONS. PT UNABLE TO FOLLOW ANY COMMANDS WITH DECREASED SEDATION THIS SHIFT. PT TAKEN FOR REPEAT HEAD CT SCAN THIS EVENING. FAMILY AT BEDSIDE THIS AFTERNOON, UPDATED TO PT CONDITION. NO IGNITION RISK IDENTIFIED AT THIS TIME. WILL CONTINUE TO MONITOR AND REPORT OFF TO ONCOMING RN.
[2023-05-09] VITALS (15 sets, daily range): BP systolic 102–152; BP diastolic 59–90
[2023-05-09 03:46] LABS: BASOPHILS ABSOLUTE AUTO 0.07 K/mm3 (0.00-0.23); BASOPHILS PERCENT AUTO 1 % (0-2); EOSINOPHILS ABSOLUTE AUTO 0.14 K/mm3 (0.00-0.68); EOSINOPHILS PERCENT AUTO 1 % (0-6); Hematocrit 37.1 % (37.0-53.0); IMMATURE GRAN ABSOLUTE AUTO 0.06 K/mm3 (0.00-0.10); IMMATURE GRAN PERCENT AUTO 0 % (0-1); LYMPHOCYTES ABSOLUTE AUTO 2.03 K/mm3 (0.84-5.20); LYMPHOCYTES PERCENT AUTO 15 % (21-46); MONOCYTES ABSOLUTE AUTO 1.46 K/mm3 (0.16-1.47); MONOCYTES PERCENT AUTO 11 % (4-13); Mean Corpuscular HGB 25.4 pg (26.0-34.0); Mean Corpuscular HGB Conc 32.3 g/dL (31.5-36.5); Mean Corpuscular Volume 78 fL (80-100); Mean Platelet Volume 9.7 fL (9.1-12.4); NEUTROPHILS PERCENT AUTO 73 % (41-73); Platelet Count 263 K/mm3 (150-400); RDW Coefficient Variation 14.4 % (11.7-14.2); RDW Standard Deviation 41.1 fL (35.1-46.3); Red Blood Cell Count 4.73 M/mm3 (4.30-5.90); White Blood Cell Count 13.96 K/mm3 (4.00-11.30)
[2023-05-09 04:06] LABS: Albumin, Blood 2.8 g/dL (3.4-5.0); Albumin/Globulin Ratio 0.8 (0.8-1.8); Bilirubin, Total 0.4 mg/dL (0.1-1.0); Bun/Creatinine Ratio 17.5 (12.0-20.0); Creatinine, Blood 0.63 mg/dL (0.60-1.20); Globulin, Blood 3.5 g/dL (2.2-4.0); Magnesium, Blood 1.9 mg/dL (1.6-2.4); Phosphorus, Blood 2.8 mg/dL (2.5-4.9); Potassium, Blood 3.5 mmol/L (3.5-5.5); Total Protein, Blood 6.3 g/dL (6.4-8.2)
--- NOTE | 2023-05-09 06:37 | NUR ---
NOC SHIFT SUMMARY PT REMAINS SEDATED W/PROPOFOL. DOES NOT FOLLOW COMMANDS. WITHDRAWS FROM PAINFUL STIMULI. TREMORS NOTED TO BILAT LOWER EXTREMETIES, APPEARS TO BE SHIVERING. SR, BP STABLE. REMAINS ON VENT, MODERATE ORAL SECRETIONS. COUGH AND GAG PRESENT. OGT WITH TF INFUSING AT 45ML/HR (GOAL) PT TOLERATING WELL. GEORGE PATENT AND DRAINING CLEAR GREEN URINE. SKIN UNCHANGED, ABRAISONS AND BRUISES SCATTERED. PIV X2 REMOVED FROM LEFT ARM. NEW PIV PLACED IN RIGHT AC. PT NOW HAS PIV X2 ON RIGHT SIDE. MAY BENEFIT FROM PICC LINE DUE TO MULTIPLE ATB. BLOOD CULTURES X2 DRAWN THIS SHIFT, ACYCLOVIR STARTED BY . NO FAMILY AT BEDSIDE. PT SAFETY ROUNDING COMPLETED EVERY HOUR, PT IS SEDATED, VENTILATED AND RESTRAINED. NO IGNITION SOURCES NOTED IN ROOM. RN TO CONTINUE TO MONITOR.
--- NOTE | 2023-05-09 17:00 | NUR ---
SUMMARY PT INTUBATED AND SEDATED WITH PROPOFOL. STRONG COUGH. NO ISSUES ON THE VENT. PUPILS EQUAL AND REACTIVE TO LIGHT. AT TIMES PT HAS NYSTAGMUS, THEN AT TIMES HE HAS AN UPWARD GAZE. AT 1100 PT STARTED SHAKING AND R ARM WAS STIFF. DR. COLLIER AT BEDSIDE, 4MG OF ATIVAN GIVEN FOR SEIZURE LIKE ACTIVITY. PROPOFOL ALSO INCREASED PER DR. COLLIER. AFTER THAT RN HAS NOT WITNESSED ANY SEIZURE LIKE ACTIVITY. MOM WAS AT BEDSIDE DURING EVENT. DR. COLLIER CONTACTED [facility] AT [facility] AND IT WAS DECIDED TO TRANSFER PT TO NEURO ICU. REPORT GIVEN TO PATO BARRIGA AT [facility]. PT TRANSPORTED BY [facility] AT 1700. PT IS NOT AN IGNITION RISK WHILE INTUBATED AND SEDATE, FAMILY EDUCATED ABOUT NO SMOKING, VAPING, OR OPEN FLAME WHILE IN HOSPITAL.
[2023-05-10 11:30] LABS: Result SEE SEPERATE REPORT
== END 2023-05-09 17:04 | disposition short-term general hospital (02) | DRG 917 ==
LOC: ER 14:23 → ICUE 16:41 → EDBD 16:41 → ICUE 17:02 → MEDS 05-04 14:26 → PCU 05-06 22:55 → ICUE 05-07 09:00
PROVIDERS: Emergency Medicine; Family Medicine; Internal Medicine; Internal Medicine Critical Care Medicine; Student in an Organized Health Care Education/Training Program; ADMIT Internal Medicine
PROC: 4A133R1 Monitoring of Arterial Saturation, Peripheral, Percutaneous Approach (ICD-10-PCS; 2023-05-02)
PROC: 0DH67UZ Insertion of Feeding Device into Stomach, Via Natural or Artificial Opening (ICD-10-PCS; 2023-05-03)
PROC: 5A1945Z Respiratory Ventilation, 24-96 Consecutive Hours (ICD-10-PCS; principal; 2023-05-07)
PROC: 0BH17EZ Insertion of Endotracheal Airway into Trachea, Via Natural or Artificial Opening (ICD-10-PCS; 2023-05-07)
PROC: 0T9B70Z Drainage of Bladder with Drainage Device, Via Natural or Artificial Opening (ICD-10-PCS; 2023-05-07)
DX: T51.1X1A Toxic effect of methanol, accidental (unintentional), initial encounter (principal); B00.4 Herpesviral encephalitis; G92.8 Other toxic encephalopathy; G93.6 Cerebral edema; J96.01 Acute respiratory failure with hypoxia; E87.21 Acute metabolic acidosis; N17.9 Acute kidney failure, unspecified; Z51.5 Encounter for palliative care; Z66 Do not resuscitate; D64.9 Anemia, unspecified; E87.6 Hypokalemia; G40.401 Other generalized epilepsy and epileptic syndromes, not intractable, with status epilepticus; F10.20 Alcohol dependence, uncomplicated; F15.10 Other stimulant abuse, uncomplicated; R74.02 Elevation of levels of lactic acid dehydrogenase [LDH]; R73.9 Hyperglycemia, unspecified; E86.0 Dehydration; T43.621A Poisoning by amphetamines, accidental (unintentional), initial encounter; Y90.7 Blood alcohol level of 200-239 mg/100 ml
CPT/HCPCS: 31500; 36415; 36600; 51702; 70450; 70551; 71045; 72125; 80047; 80048; 80053; 81001; 82010; 82330; 82550; 82607; 82746; 82803; 82947; 83605; 83735; 83930; 84100; 84132; 84146; 84443; 84478; 84484; 85014; 85018; 85025; 85027; 85610; 87040; 87070; 87086; 87205; 94002; 94003; 94760; 94762; 95819; 97110; 97112; 97112-CQ; 97116; 97162; 97166; 97530; 97535; 99285-25; A9270; C9113; C9254; G0480; J0133; J0612; J1650; J1953; J2060; J2250; J2543; J2704; J3010; J3370; J3411; J3480; J7030; J7050; J7120